=== PATIENT | female | born 2000 | race Caucasian/White ===

== ENCOUNTER → 2022-01-25 | Outpatient (REF) | payer OTHER | LOC: M LAB REF 08:23 | PROVIDERS: ATTEND Surgery | DX: L72.11 Pilar cyst (principal) ==

== ENCOUNTER → 2022-01-30 | Outpatient (REF) | payer OTHER | LOC: M LAB REF 16:40 | PROVIDERS: ATTEND Nurse Practitioner Family | DX: R30.0 Dysuria (principal) ==

== ENCOUNTER → 2022-08-21 | Outpatient (REF) | payer OTHER ==
[2022-08-21 19:40] LABS: GC DNA AMPLIFICATION NEGATIVE (NEGATIVE)
== END ==
LOC: M LAB REF 16:42
PROVIDERS: ATTEND Nurse Practitioner Family
DX: R30.0 Dysuria (principal); Z11.3 Encounter for screening for infections with a predominantly sexual mode of transmission